=== PATIENT | female | born 1970 | race Caucasian/White ===

== ENCOUNTER 2022-01-03 12:10 | Emergency (ER) | payer OTHER, SELFPAY ==
[2022-01-03 12:11] VITALS: BP 189/112; PULSE 111; RESP 18; TEMP 36; O2SAT 99; BMI 60.7
--- NOTE | 2022-01-03 12:35 | RAD_ITS ---
STUDY: X-RAY CHEST REASON FOR EXAM: Female, 51 years old. Cough and fever . Shortness of breath. TECHNIQUE: PA and lateral views of the chest. COMPARISON: None. FINDINGS: The lungs are clear and expanded. There is no demonstrated pleural abnormality. Normal size heart. Normal mediastinum and justin. Normal visualized pulmonary arteries. Normal visualized aortic arch and descending thoracic aorta. There are diffuse degenerative changes of the visualized thoracic spine. Normal visualized ribs, clavicles, and shoulders. There is no demonstrated abnormality of the visualized soft tissue structures of the upper abdomen. RAD/Chest PA and Lateral IMPRESSION: The lungs are clear. Electronically Signed: Jae Gramajo MD at 13:03 EDT ,
--- NOTE | 2022-01-03 12:36 | EDS_ITS ---
HPI HPI - URI History of Present Illness Chief Complaint: Shortness of Breath Informant: patient Onset/Context/Timing Onset: Days Context: Gradual Onset Timing: Continuous Current Severity: Mild Maximum Severity: Mild Associated Symptoms Associated Symptoms: Positive for Nasal Congestion, Shortness of Breath and Nonproductive cough; Negative for Myalgias, Nausea, Vomiting, Diarrhea, Chest Pain, Hemoptysis and Productive Cough Narrative Narrative: 51-year-old female who was vaccinated against COVID. States she has had mild shortness of breath cough and fever since Monday. Fever as high as 1 02. Nonproductive cough. Denies any vomiting, diarrhea or dysuria. Denies any hemoptysis. No chest pain. No leg pain or swelling. No history of DVT or PE. Prior similar symptoms: Yes Recent Illness/Hospitalization: No ROS ROS ED ROS Narrative Cough, fever shortness of breath. Review of Systems ROS Unobtainable: Denies due to encephalopathy Constitutional Constitutional ED: Reports fever(s) Eyes Eyes: Denies change in vision ENT ENT ED: Denies ear pain Cardiovascular Cardiovascular: Denies chest pain Respiratory/Chest Respiratory/Chest: Reports cough and dyspnea Gastrointestinal Gastrointestinal: Denies abdominal pain, diarrhea, nausea or vomiting Genitourinary Genitourinary ED: Denies dysuria Musculoskeletal Musculoskeletal: Denies myalgias Integumentary Denies rash Neurologic Neurologic: Denies headache(s) Psychiatric Psychiatric: Denies depression Endocrine Endocrinology: Denies polyuria Hematologic/Lymphatic Hematologic/Lymphatic: Denies easy bruising Allergic/Immunologic Allergic/Immunologic ED: Denies urticaria PFSH PFSH Medical History no medical history no medical history Home Medications hydrochlorothiazide 25 mg PO DAILY 08/19/16 [History Last Taken Unknown] prednisone 60 mg PO DAILY #15 tablet 08/19/16 [Rx Last Taken Unknown] azithromycin [Zithromax Z-Justin] See Rx Instructions .ROUTE .COMPLEX 5 Days #6 tab 01/03/22 [Rx Last Taken Unknown] Allergy/AdvReac Type Severity Reaction Status Date / Time magnesium AdvReac Other Verified 01/03/22 12:11 sulfamethoxazole AdvReac Vomiting Verified 01/03/22 12:11 [From Bactrim] trimethoprim [From Bactrim] AdvReac Vomiting Verified 01/03/22 12:11 Surgical History (Updated 01/03/22 @ 12:39 by Whit Mena RN) Hx of section Social History Smoking Status: Never smoker EXAM Physical Exam Narrative Exam Narrative: 51-year-old female no acute distress. Vital signs stable her blood pressure is elevated 189/112. That will be rechecked. Pulse ox 9 9% on room air no signs hypoxia. HEENT exam unremarkable. Neck nontender. Lungs cl ear to auscultation bilaterally. Dry cough. Heart regular rate and rhythm no murmur. Abdomen soft nontender. Moving all 4 extremities. Calves nontender without edema. Neurologically awake alert with no focal motor deficits. Const Vital Signs: 01/03/22 12:11 01/03/22 12:39 Temperature 96.8 F L Temperature Source Temporal Pulse Rate 111 H Respiratory Rate 18 Respiratory Effort Short of Breath Respiratory Depth Normal Respiratory Pattern Normal Blood Pressure 189/112 H Blood Pressure Mean 137 Pulse Ox 99 Oxygen Delivery Method Room Air Positive well nourished, well developed and obese; Negative for cachectic or contractures General Appearance ED: well developed and NAD; Negative for cachectic, contractures, cyanotic, diaphoretic or pallor Nutritional Appearance: obese; Negative for cachectic HEENT Reports moist mucous membranes normocephalic and atraumatic External Ear: external ears normal Throat: posterior oropharynx normal Eyes PERRL and EOMs intact bilaterally General Eye ED: Negative for pale conjunctiva or scleral icterus Neck no lymphadenopathy, supple, no meningeal signs and no JVD General: Negative for anterior neck swelling or lymphadenopathy Resp normal respiratory effort and clear to auscultation bilaterally Effort and Inspection: Negative for retractions Auscultation: Negative for rales, rhonchi or wheezes Cardio S1 normal heart sound, S2 normal heart sound and no murmurs Rate: regular rate Rhythm: regular rhythm GI non-tender, non-distended and no masses Inspection: Negative for abdominal distention Auscultation: normoactive bowel sounds Palpation: soft; Negative for tender or guarding Back/Spine no CVA tenderness and normal ROM General Back: Negative for CVA tenderness Cervical Spine: Negative for cervical spine tenderness Extremity normal to inspection and full ROM General Extremety ED: Negative for cyanosis or tenderness General Extremity: Negative for cyanosis Neuro oriented x3 and CN's II-XII intact bilaterally Sensorium / Orientation: alert, oriented to person, oriented to place, oriented to time and stuporous; Negative for orientation impaired or lethargic Motor Exam: strength 5/5 throughout; Negative for general weakness Psych mental status grossly normal Attitude: No agitated Mood & Affect: Negative for depressed or tearful Skin General Skin Exam: Negative for jaundice or pallor Lesions: no lesions Rashes: no rashes MDM MDM MDM Narrative Medical decision making narrative: 51-year-old that was vaccinated against COVID had negative test over the weekend at home. Complaint URI symptoms. Chest x- ray will be obtained. Repeat exam unchanged doing well at 1:54 PM. Will be discharged home. Radiography Diagnostic Testing: Clinical Impression(s) from Imaging Studies Chest X-Ray 01/03/22 12:35 IMPRESSION: The lungs are clear. Electronically Signed: Jae Gramajo MD at 13:03 EDT Reading Location ID and State: [facility] / [place] , Service support , Chest x-ray 2 views, AP and lateral, interpreted by myself and the radiologist shows no acute abnormality. We agree. No infiltrates. No pneumonia. Discharge Plan Triage Chief Complaint: Shortness of Breath ED Provider: Danny Yuan Dx/Rx/DC Orders Clinical Impression: Acute bronchitis Instructions: Acute Bronchitis Prescriptions: New azithromycin [Zithromax Z-Justin] 250 mg tablet See Rx Instructions .ROUTE .COMPLEX 5 Days Qty: 6 RF: 0 No Action hydrochlorothiazide 25 MG tablet 25 mg PO DAILY RF: 0 prednisone 20 MG tablet 60 mg PO DAILY Qty: 15 RF: 0 Primary Care Provider: Patricia Villatoro Referrals: Patricia Villatoro MD [Primary Care Provider] - 1 Week if not improving Activity Restrictions/Additional Instructions: Plenty of fluids and rest. Tylenol and Motrin for fever. Follow-up if not improving. Return if worse. Only start antibiotic if not improving. Disposition Disposition: Home, Self Care
[2022-01-03 14:08] VITALS: PULSE 84; RESP 18
== END 2022-01-03 14:08 | disposition home or self-care (01) ==
PROVIDERS: Emergency Provider Emergency Medicine; PCP Family Medicine; Visit Provider Emergency Medicine
DX: J20.9 Acute bronchitis, unspecified (principal)
CPT/HCPCS: 71046; 99282

== ENCOUNTER → 2022-10-25 | Outpatient (CLI) | payer OTHER, SELFPAY ==
[2022-10-25 18:24] LABS: Anion Gap 10 (5-15); BUN 10 mg/dL (7-18); BUN/Creat Ratio 16.1 RATIO (10-20); Calcium,Total 9.5 mg/dL (8.5-10.1); Chloride 104 mmol/L (98-107); Cholesterol 258 mg/dL (200); Creatinine, Serum 0.62 mg/dL (0.55-1.02); EST Glomerular Filtration Rate 107 mL/min (>60); Est Glom Filt Rate - Afr Amer 130 mL/min (>60); Glucose 127 mg/dL (74-106); High Density Lipoprotein 42 mg/dL; Potassium 4.2 mmol/L (3.5-5.1); Sodium Level 140 mmol/L (136-145); Triglycerides 311 mg/dL; Very Low Density Lipoprotein 62 mg/dL (5-40)
[2022-10-25 18:53] LABS: Hemoglobin A1c 8.2 % (3.8-5.6)
== END | disposition home or self-care (01) ==
LOC: MFPLAB 15:56
PROVIDERS: PCP Family Medicine; Visit Provider Family Medicine
DX: Z00.00 Encounter for general adult medical examination without abnormal findings (principal); E66.01 Morbid (severe) obesity due to excess calories
CPT/HCPCS: 36415; 80048; 80061; 83036

== ENCOUNTER → 2022-10-27 | Outpatient (CLI) | payer OTHER, SELFPAY ==
--- NOTE | 2022-10-27 07:27 | BI_ITS ---
MAMMOGRAPHY - BILATERAL SCREENING REASON FOR EXAM: Female, 51 years old. Routine annual screening examination. PERTINENT HISTORY: Non-contributory. TECHNIQUE: Digital bilateral breast roly (3D mammographic acquisition) in the CC and MLO projections. 2-D mediolateral oblique (MLO) and craniocaudad (CC) views of both breasts were obtained. CAD: Full Field Digital Mammography with Computer Added Detection was performed. COMPARISON: Comparison is made with prior abdomen examination done 08/05/2015. FINDINGS: Breast Composition: The breasts are almost entirely fatty. There are no dominant masses or suspicious calcifications. No other significant abnormalities are identified. There has been no significant change since the prior study. BI/SCRN MAMM (CAD)W/ROLY BILAT IMPRESSION: Stable bilateral screening mammogram. Yearly follow-up mammogram recommended. (A) ASSESSMENT CATEGORY: BIRADS Category 1: Negative. A letter regarding these results will be sent to the patient by the facility within 30 days. Approximately 10% of breast cancers are not detected by mammography. A normal mammogram should not delay biopsy of a clinically suspicious abnormality. [id number] Electronically Signed: Jae Gramajo MD at 15:19 EST ,
== END | disposition home or self-care (01) ==
PROVIDERS: PCP Family Medicine; Visit Provider Family Medicine
DX: Z12.31 Encounter for screening mammogram for malignant neoplasm of breast (principal)
CPT/HCPCS: 77063; 77067

== ENCOUNTER → 2023-01-05 | Outpatient (CLI) | payer OTHER, SELFPAY ==
[2023-01-12 14:21] LABS: HPV APTIMA, High Risk Negative (Negative)
== END | disposition home or self-care (01) ==
PROVIDERS: PCP Family Medicine; Visit Provider Registered Nurse
DX: Z01.419 Encounter for gynecological examination (general) (routine) without abnormal findings (principal)
CPT/HCPCS: 87624; 88175; G0145

== ENCOUNTER → 2025-06-03 | Outpatient (CLI) | payer OTHER, SELFPAY ==
--- OUTSIDE RECORDS SUMMARY | 2025-06-03 09:17 | XMS RPT_ITS | CCD ---
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 Patricia Villatoro Primary Care Provider [phone] Dr. Patricia Villatoro Referring Provider MARION Schroeder Attending Provider [phone] Ivana Schroeder Attending Unavailable Patricia Villatoro Primary Care Unavailable Patricia Villatoro Primary Care Unavailable Patricia Villatoro Attending Unavailable Patricia Villatoro Attending Unavailable Irving, Patricia Patel Primary Care Unavailable Irving, Patricia Patel Primary Care Unavailable Ivana Schroeder Attending Unavailable Patricia Villatoro Referring Unavailable Hal Ang Attending Unavailable Irving, Patricia Patel Primary Care Unavailable Irving, Patricia Patel Referring Unavailable Allergies Allergy Classification Reported Allergen(s) Allergy Type Date of Onset Reaction(s) Facility (4 sources) Magnesium Drug Allergy 2 Other [facility] (4 sources) Sulfamethoxazole Drug Allergy 2 [facility] (4 sources) Trimethoprim Drug Allergy 2 [facility] (1 source) Magnesium Drug Allergy 3 [facility] Repository (1 source) Sulfamethoxazole Drug Allergy 3 [facility] Repository (1 source) Trimethoprim Drug Allergy 3 [facility] Repository Medications Current Medications Medication Drug Class(es) Dates Sig (Normalized) Sig (Original) [place] (Nk) (1 source) Start: 01-05-2023 [place] (Nk) A ctive January 05, 2023 12:00am Completed/Discontinued Medications Medication Drug Class(es) Dates Sig (Normalized) Sig (Original) azithromycin 250 mg oral tablet (4 sources) Macrolide Antimicrobial Start: 01-04-20 22 End: 03-30-20 23 Azithromycin (Zithromax Z-Justin) 250 mg tablet Discontinued 0 PO .COMPLEX 6 5 January 03, 2022 12:00am January 05, 2023 2:53pm For 250 mg dose pack: take 500 mg today (day 1), then 250 mg for 4 days (days 2-5) hydroCHLOROthiazide 25 mg oral tablet (4 sources) Thiazide Diuretic Start: 08-19-20 End: 01-06-20 take 25 mg by mouth once daily Hydrochlorothiazide Discontinued 25 MG PO DAILY August 19, 2016 1:00am January 05, 2023 2:53pm predniSONE 20 mg oral tablet (4 sources) Start: 08-19-20 End: 01-06-20 take 60 mg by mouth once daily Prednisone Discontinued 60 MG PO DAILY August 19, 2016 1:00am January 05, 2023 2:53pm Problems Active Problems Problem Classification Problem Date Documented Da te Episodic/Chronic Acute bronchitis (4 sources) Acute bronchitis; Translations: [Acute bronchitis, unspecified] 01-11-2022 Episodic Past or Other Problems Problem Classification Problem Date Documented Da te Episodic/Chronic Other screening for suspected conditions (not mental disorders or infectious disease) (1 source) Encounter for screening mammogram for malignant neoplasm of breast; Translations: [Encounter for screening mammogram for malignant neoplasm of breast] Onset: 11-07-2022 Episodic Results Test Name Value Interpretation Reference Range Facility Orthopedic Visit Reporton Orthopedic Visit Report [facility] [address] [place] [address] OFFICE VISIT Date of Service: 09/19/23 MR#: [id number] Acct: [id number] Name: CLAUDIO RAO FLOR Rep #: [id number] : 1970 Provider: Dr. Hal gamez MD Age/Sex: 52/F Location: [facility] Status: Signed Intake Vital Signs 01/05/23 14:52 09/19/23 14:16 Height 5 ft 2 in 5 ft 2 in Weight: 334 lb 4 oz 337 lb 2 oz BMI 61.1 61.7 BP 146/92 H Intake Visit Reasons: BL WRIST Accompanied by: Self Is patient in pain?: Yes Pain scale (1-10): 1 Allergies magnesium Adverse Reaction (Verified 01/05/23 14:50) Other sulfamethoxazole [From Bactrim] Adverse Reaction (Verified 01/05/23 14:50) Vomiting trimethoprim [From Bactrim] Adverse Reaction (Verified 01/05/23 14:50) Vomiting Medications NK 01/05/23 [History Confirmed 09/19/23] PFSH Medical History (Updated 09/19/23 @ 14:43 by Hal Ang MD) Bilateral carpal tunnel syndrome Diabetes Hypertension Left lateral epicondylitis Surgical History (Updated 09/19/23 @ 14:18 by Angela Juarez) Hx of section Family History (Updated 01/05/23 @ 14:55 by Samara Morgan) Grandfather Cancer Father Heart disease Hypertension Mother Diabetes Social History (Updated 01/05/23 @ 14:57 by Samara Morgan) household members: significant other and children housing: house number of children: 1 current occupational status: employed current occupation: 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 Hal Ang MD 09/19/23 1126. Part of today???s visit was documented by [ ], acting as scribe. CLAUDIO RAO is a 52 year old F here today for referral from [facility] re bilateral carpal tunnel syndrome. LHD, ambidextrous. hands going numb, write with left hand. getting worse, started a year ago, every day becoming more frequent. clumsy. usually thumb index middle. 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 [place] - stretching, shaking it out, some bracing at night - couple months. some elbow pain on the left side. lateral side. no NCS. Ortho Exam General General: Yes no acute distress Neurologic: Yes alert and Yes oriented x3 Psychologic: Yes reasonable and appropriate Right Wrist/Hand Skin/Wound: Yes CDI, No Swelling, No Ecchymosis, Yes nail intact and Yes capillary refill normal Right Wrist: Yes ROM-Extension 0-60, ROM-Flexion 0-80, ROM-Pronation 0-80, ROM-Supination 0-90, Durken's Test, Tinel's and Phalen's; No Thenar Atrophy or Hypothenar Atrophy Motor: EPL: 5, FDP-2: 5, 1st Dorsal Interosseous: 5 and APB: 5 Sensation: Radial: I, Ulnar: I and Median: D Left Wrist/Hand Skin/Wound: Yes CDI, No Swelling, No Ecchymosis, Yes nail intact, Yes capillary refill normal and No erythema Left Wrist: Yes ROM-Extension 0-60, Yes ROM-Flexion 0-80, Yes ROM-Pronation 0-80, Yes ROM-Supination 0-90, Yes Durken's Test, Yes Tinel's and Yes Phalen's; No Thenar Atrophy and No Hypothenar Atrophy Motor: EPL: 5, FDP-2: 5, 1st Dorsal Interosseous: 5 and APB: 5 Sensation: Radial: I, Ulnar: I and Median: D Left Elbow Skin/Wound: Yes CDI, No eccymosis, No erythema and No Swelling Test: No Valgus Stress Test, No Varus Stress Test, No TTP Medial Epicondyle, Yes TTP Lateral Epicondyle, Yes Pain w/ resist wrist ext, No Pain w/ resist wrist flex, Yes Pain w/ resist 3rd dig ext, No Thenar Atrophy, No Ulnar Nerve Subluxation and No Tinel's ROM: Yes Flexion 0-140 Motor: Elbow Extension: 5 and Elbow Flexion: 5 Coding Level of Care Code Off vis,new,level 3 Diagnoses Bilateral carpal tunnel syndrome G56.03 Left lateral epicondylitis M77.12 Assessment and Plan Assessment and Plan (1) Bilateral carpal tunnel syndrome: Status: Acute Plan: CLAUDIO RAO is a 52 year old F here today for referral from [facility] re bilateral carpal tunnel syndrome. Patient has signs and symptoms of bilateral carpal tunnel syndrome. Discussed the diagnosis prognosis different treatment options and counseled the patient on these. This can become worse or more permanent with time. Patient can try rest ice anti-inflammatories they are trying night splinting. Other options would be cortisone injections as well as open or endoscopic surgery. The patient is interested in likely going ahead with surgery therefore I will go ahead and order nerve conduction studies both to assess the severity confirm the diagnosis and rule out other things that could be causing this type (more content not included)... Normal [facility] PAP IG HPV APTIMA 16/18,45on 01-12-2023 ADEQ Comment Normal . 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 of containers..01 ThinPrep Vial Result Comment: Sati sfactory for evaluation. Endocervical and/or squamous metaplastic cells (endocervical component) are present. Performed By: #### L 7400.0280 #### [facility] [address] [place], [address] COMMENT TNP Normal . [facility] Comment on above: Order Comment: Clini torrey Info: ANNUAL - Non Collection Vial: Thin Prep Vial DIRECTOR TELEVISION NEWS Source: CERVICAL Date LMP/Menopause: LMP Collection Techniques: BRUSH/SPATULA Specimen Comment: [id number] Specimen Comment: Source.............Cervix Specimen Comment: No. of containers..01 ThinPrep Vial Result Comment: The Thin Prep(R) Barge Master was unable to read this specimen. Therefore a manual review was performed. Performed By: #### L 7400.0280 #### [facility] [address] [place], [place], [id number] DIAG Comment Normal . [facility] Comment on above: Order Comment: Clini torrey Info: ANNUAL - Non Collection Vial: Thin Prep Vial DIRECTOR TELEVISION NEWS Source: CERVICAL Date LMP/Menopause: LMP Collection Techniques: BRUSH/SPATULA Specimen Comment: [id number] Specimen Comment: Source.............Cervix Specimen Comment: No. of containers..01 ThinPrep Vial Result Comment: NEGA TIVE FOR INTRAEPITHELIAL LESION OR MALIGNANCY. Performed By: #### L 7400.0280 #### [facility] [address] [place], [place], [id number] HPV APTIMA, HR Negative Normal Negative [facility] Comment on above: Order Comment: Clini torrey Info: ANNUAL - Non Collection Vial: Thin Prep Vial DIRECTOR TELEVISION NEWS Source: CERVICAL Date LMP/Menopause: LMP Collection Techniques: BRUSH/SPATULA Specimen Comment: [id number] Specimen Comment: Source.............Cervix Specimen Comment: No. of containers..01 ThinPrep Vial Result Comment: This nucleic acid amplification test detects fourteen high- risk HPV types (16,18,31,33,35,39,45,51,52,56,58,59,66,68) without differentiation. Performed By: #### L 7400.0280 #### [facility] [address] [place], [address] HPV Ramona Rfx Comment Normal . [facility] Comment on above: Order Comment: Clini torrey Info: ANNUAL - Non Collection Vial: Thin Prep Vial DIRECTOR TELEVISION NEWS Source: CERVICAL Date LMP/Menopause: LMP Collection Techniques: BRUSH/SPATULA Specimen Comment: [id number] Specimen Comment: Source.............Cervix Specimen Comment: No. of containers..01 ThinPrep Vial Result Comment: Crit eria not met, HPV Genotype not performed. Performed at: - [facility] [id number] Steel Rule Inspector: Josey Ortega MD, Phone: [phone] Performed at: = - [facility] [address] [id number] Steel Rule Inspector: Josey Ortega MD, Phone: [phone] Performed By: #### L 7400.0280 #### [facility] [address] [place], [place], [id number] PAPSMR Comment Normal . [facility] Comment on above: Order Comment: Clini torrey Info: ANNUAL - Non Collection Vial: Thin Prep Vial DIRECTOR TELEVISION NEWS Source: CERVICAL Date LMP/Menopause: LMP Collection Techniques: BRUSH/SPATULA Specimen Comment: [id number] Specimen Comment: Source.............Cervix Specimen Comment: No. of containers..01 ThinPrep Vial Result Comment: The Pap smear is a screening test designed to aid in the detection of premalignant and malignant conditions of the uterine cervix. It is not a diagnostic procedure and should not be used as the sole means of detecting cervical cancer. Both false-positive and false-negative reports do occur. Performed By: #### L 7400.0280 #### [facility] [address] [place], [place], [id number] PERFORM Comment Normal . [facility] Comment on above: Order Comment: Clini torrey Info: ANNUAL - Non Collection Vial: Thin Prep Vial DIRECTOR TELEVISION NEWS Source: CERVICAL Date LMP/Menopause: LMP Collection Techniques: BRUSH/SPATULA Specimen Comment: [id number] Specimen Comment: Source.............Cervix Specimen Comment: No. of containers..01 ThinPrep Vial Result Comment: John Schneider, Vp Director Of Finance (ASCP) Performed By: #### L 7400.0280 #### [facility] [address] [place], [place], [id number] COMM . Normal . [facility] Comment on above: Order Comment: Clini torrey Info: ANNUAL - Non Collection Vial: Thin Prep Vial DIRECTOR TELEVISION NEWS Source: CERVICAL Date LMP/Menopause: LMP Collection Techniques: BRUSH/SPATULA Specimen Comment: [id number] Specimen Comment: Source.............Cervix Specimen Comment: No. of containers..01 ThinPrep Vial Performed By: #### L 7400.0280 #### [facility] [address] [place], [place], [id number] Cervical or vagninal specime n microscopic examination by cytology stain (reported asOrdered By: Ivana Schroeder on 01-05-2023 Cytology report Cyto stain Doc (Cvx/Vag) Comment . [facility] Comment on above: The Pap smear is a s creening test designed to aid in thedetection of premalignant and malignant conditions of theuterine cervix. It is not a diagnostic procedure andshould not be used as the sole means of detecting cervicalcancer. Both false-positive and false-negative reports dooccur. Detection in cervical specim en of any of human papilloma virus (HPV) 16, 18, 31, 33,Ordered By: Ivana Schroeder on 01-05-2023 HPV 16+18+31+33+35+39+45+51 +52+56+58+59+66+68 DNA Probe+sig amp Ql (Cvx) Negative Negative [facility] Comment on above: This nucleic acid am plification test detects fourteen high-risk HPV types (16,18,31,33,35,39,45,51,52,56,58,59,66,68)without differentiation. Laboratory - CytologyOrdered By: Ivana Schroeder on 01-05-2023 Iron Carrier Cyto stain Nom (Cvx/Vag) [ID] Comment . [facility] Comment on above: Mechelle Schneider, Cyto technologist (ASCP) Laboratory - Miscellaneous t estsOrdered By: Ivana Schroeder on 01-05-2023 Service comment (Unsp spec) [Interp] TNP [facility] Comment on above: Test not performedTh e Thin Prep(R) Barge Master was unable to read this specimen.Therefore a manual review was performed. Service comment (Unsp spec) [Interp] . . [facility] Liquid-based cerv Pap + CT/G C by SUZANNE w reflex to high-risk HPV for ASCUSOrdered By: Ivana Schroeder on 01-05-2023 Cytology report Cyto stain.thin prep Doc (Cvx/Vag) Comment . [facility] Comment on above: Criteria not met, HP V Genotype not performed.Performed at: - [facility] [id number] Director: Josey Ortega MD, Phone: [phone] at: =[facility] [id number] Director: Josey Ortega MD, Phone: [phone] No Panel InformationOrdered By: Ivana Schroeder on 01-05-2023 Pathology report final diagnosis Narrative Comment . [facility] Comment on above: NEGATIVE FOR INTRAEP ITHELIAL LESION OR MALIGNANCY. Neck Fitter Office Visit Reporton 01-05-2023 Neck Fitter Office Visit Report [facility] 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 Patient states she is nervous and has not been to an OBGYN office since she had her daughter in 2007. Patient states she sees her PCP routinely and has not had any bp problems. [facility] Surgical History (Updated 01/03/22 @ 12:39 by Whit Mena RN) Hx of section Family History (Updated 01/05/23 @ 14:55 by Samara Morgan) Grandfather Cancer Father Heart disease Hypertension Mother Diabetes Social History (Updated 01/05/23 @ 14:57 by Samara Morgan) household members: significant other and children housing: house number of children: 1 current occupational status: employed current occupation: 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 Date Name GA/Weeks Outcome Route Bth Weight Infant Gen Labor Lgth Anesthesia Del Locatn Provider FOB 03/04/08 Daila live - full term Female spinal [facility] Ru ssel HPI Encounter for routine gynecological examination Details: CLAUDIO RAO is a 52 year old who presents for annual exam. sexually active, menses month, occ every other month. not currently using any contraception. recently diagnosed with DM2, desires non- pharmacological treatment, discussing options with PCP. not on any medications currently. Last PAP: greater than 5 years ago History of abnormal PAP: Last mammogram: 10/27/2022, birads 1 History of abnormal mammogram: [] Colon cancer screening: Other preventative health care screenings: pcp Female Reproductive History Last Menstrual Period: 12/22/22 Questions: metorrhagia: No, sexually active: Yes, dyspareunia: No and PCB: No Menopausal Symptoms: No hot flashes, No weight change, No mood changes, No difficulty concentrating, No sleep problems and No change in libido ROS Const ROS Unobtainable: All systems reviewed are unremarkable except as noted in H Constitutional: Reports system reviewed and no additional complaints, except as documented Eyes Eyes: Reports system reviewed and no additional complaints, except as documented ENT ENT: Reports system reviewed and no additional complaints, except as documented Cardio Card: Reports system reviewed and no additional complaints, except as documented Resp Resp: Reports system reviewed and no additional complaints, except as documented GI GI: Reports system reviewed and no additional complaints, except as documented : Reports system reviewed and no additional complaints, except as documented; Denies hot flashes Skin Skin/Breast: Reports system reviewed and no additional complaints, except as documented Neuro Neuro: Reports system reviewed and no additional complaints, except as documented Psych Psych: Reports system reviewed and no additional complaints, except as documented; Denies change in libido or difficulty concentrating Endo Endo: Reports system reviewed and no additional complaints, except as documented Ric/Lymph Hematologic/Lymphatic : Reports system reviewed and no additional complaints, except as documented Aller/Immun Allergic/Immunologic: Reports system reviewed and no additional complaints, except as documented Exam Const General: cooperative, healthy appearing, comfortable, no acute distress, well developed and well groomed Neck Neck: normal visual inspection, full ROM, no lymphadenopathy and sup (more content not included)... Normal [facility] SCRN MAMM (CAD)W/ROLY BILATo n 10-27-2022 SCRN MAMM (CAD)W/ROLY BILAT [facility] [address] [place] [address] SCRN MAMM (CAD)W/ROLY BILAT MR#: [id number] Acct: [id number] Name: CLAUDIO RAO FLOR Rep #: [id number] : 1970 F 51 From: Jae galvez MD PCP: Dr. Patricia Villatoro MD Status: [facility] Study: SCRN MAMM (CAD)W/ROLY BILAT Date of Exam: 10/09 07/01 Exam# [id number] Ordering Dr: Patricia Villatoro MD MAMMOGRAPHY - BILATERAL SCREENING REASON FOR EXAM: Female, 51 years old. Routine annual screening examination. PERTINENT HISTORY: Non-contributory. TECHNIQUE: Digital bilateral breast roly (3D mammographic acquisition) in the CC and MLO projections. 2-D mediolateral oblique (MLO) and craniocaudad (CC) views of both breasts were obtained. CAD: Full Field Digital Mammography with Computer Added Detection was performed. COMPARISON: Comparison is made with prior abdomen examination done 08/05/2015. FINDINGS: Breast Composition: The breasts are almost entirely fatty. There are no dominant masses or suspicious calcifications. No other significant abnormalities are identified. There has been no significant change since the prior study. BI/SCRN MAMM (CAD)W/ROLY BILAT IMPRESSION: Stable bilateral screening mammogram. Yearly follow-up mammogram recommended. (A) ASSESSMENT CATEGORY: BIRADS Category 1: Negative. A letter regarding these results will be sent to the patient by the facility within 30 days. Approximately 10% of breast cancers are not detected by mammography. A normal mammogram should not delay biopsy of a clinically suspicious abnormality. [id number] Electronically Signed: Jae Gramajo MD at 15:19 EST , CC: Dr. Patricia Villatoro MD Bear Keeper: Signed Normal [facility] Basic Metabolic Profile (BMP )on 10-25-2022 BUN/CRE 16.1 RATIO Normal 10-20 [facility] Comment on above: Performed By: #### L 500.4100, L501.9985, L500.2500 #### [facility] [address] [place], [address] CA,Total 9.5 mg/dL Normal 8.5-10.1 [facility] Comment on above: Performed By: #### L 500.4100, L501.9985, L500.2500 #### [facility] [address] [place], [address] Chloride [Moles/Vol] 104 mmol/L Normal 98-107 [facility] Comment on above: Performed By: #### L 500.4100, L501.9985, L500.2500 #### [facility] [address] [place], [address] CO2 [Moles/Vol] 26.0 mmol/L Normal 21.0-32.0 [facility] Comment on above: Performed By: #### L 500.4100, L501.9985, L500.2500 #### [facility] [address] [place], [address] Creatinine [Mass/Vol] 0.62 mg/dL Normal 0.55-1.02 [facility] Comment on above: Result Comment: The validity of the calculated GFR GFRAA in patients over 70 years has not been determined. Clinical correlation is essential. Performed By: #### L 500.4100, L501.9985, L500.2500 #### [facility] [address] [place], [address] EST GFR - AA 130 mL/min Normal >60 [facility] Comment on above: Result Comment: Afri can Bulgarian GFR Calc Performed By: #### L 500.4100, L501.9985, L500.2500 #### [facility] [address] [place], [address] GAP 10 Normal 5-15 [facility] Comment on above: Performed By: #### L 500.4100, L501.9985, L500.2500 #### [facility] [address] [place], [address] GFR/1.73 sq M.predicted among non-blacks MDRD (S/P/Bld) [Vol rate/Area] 107 mL/min/{1.73_m2} Normal >60 [facility] Comment on above: Result Comment: Non- GFR Calc Performed By: #### L 500.4100, L501.9985, L500.2500 #### [facility] [address] [place], [address] Glucose [Mass/Vol] 127 mg/dL High 74-106 [facility] Comment on above: Result Comment: Fast ing Glucose result greater than or equal to 126 mg/dL suggests DIABETES MELLITUS per A.D.A. criteria. Performed By: #### L 500.4100, L501.9985, L500.2500 #### [facility] [address] [place], [address] Potassium [Moles/Vol] 4.2 mmol/L Normal 3.5-5.1 [facility] Comment on above: Performed By: #### L 500.4100, L501.9985, L500.2500 #### [facility] [facility] [address] [place], [address] Sodium [Moles/Vol] 140 mmol/L Normal 136-145 [facility] Comment on above: Performed By: #### L 500.4100, L501.9985, L500.2500 #### [facility] [address] [place], [address] Urea nitrogen [Mass/Vol] 10 mg/dL Normal 7-18 [facility] Comment on above: Performed By: #### L 500.4100, L501.9985, L500.2500 #### [facility] [address] [place], [address] Basophil percentageOrdered B y: Dr. Villatoro on 10-25-2022 Chloride [Moles/Vol] 104 mmol/L 98-107 [facility] Cholesterol [Mass/Vol] 258 mg/dL <200 [facility] Comment on above: <200 mg/dL Desirable 200-240 mg/dL Borderline >240 mg/dL High Risk Glucose [Mass/Vol] 127 mg/dL 74-106 [facility] Comment on above: Fasting Glucose resu lt greater than or equal to 126 mg/dL suggests DIABETES MELLITUS per A.D.A. criteria. Potassium [Moles/Vol] 4.2 mmol/L 3.5-5.1 [facility] Sodium [Moles/Vol] 140 mmol/L 136-145 [facility] Triglyceride [Mass/Vol] 311 mg/dL <199 [facility] Comment on above: The drugs N-Acetylcy steine and Metamizole may falsely depress this assay.Serum Triglycerides Reference Interval Normal <150 mg/dL Borderline high 150 - 199 mg/dL High 200 - 499 mg/dL Very High > or = 500 mg/dL Hemoglobin A1con 10-25-2022 HbA1c (Bld) [Mass fraction] 8.2 % High 3.8-5.6 [facility] Comment on above: Result Comment: Norm al < 5.7 % Prediabetic 5.7 - 6.4 % Diabetic >or= 6.5 % Please note range changes. Performed By: #### L 500.4100, L501.9985, L500.2500 #### [facility] [address] [place], [address] Laboratory - Chemistry and C hemistry - challengeOrdered By: Dr. Villatoro on 10-25-2022 CO2 [Moles/Vol] 26.0 mmol/L 21.0-32.0 [facility] Urea nitrogen/Creatinine [Mass ratio] 16.1 mg/mg 10- [facility] Lipid Profileon 10-25-2022 Cholesterol [Mass/Vol] 258 mg/dL High 200 [facility] Comment on above: Result Comment: <200 mg/dL Desirable 200-240 mg/dL Borderline >240 mg/dL High Risk Performed By: #### L 500.4100, L501.9985, L500.2500 #### [facility] [address] [place], [address] Cholesterol in HDL [Mass/Vol] 42 mg/dL Normal [facility] Comment on above: Result Comment: The drugs N-Acetylcysteine and Metamizole may falsely depress this assay. Reference Range HDL <40 mg/dL Low HDL Cholesterol HDL >or= 60 mg/dL High HDL Cholesterol Performed By: #### L 500.4100, L501.9985, L500.2500 #### [facility] [address] [place], [address] Cholesterol in LDL [Mass/Vol] 154 mg/dL High 0-130 [facility] Comment on above: Performed By: #### L 500.4100, L501.9985, L500.2500 #### [facility] [address] [place], [address] Cholesterol in VLDL [Mass/Vol] 62 mg/dL High 5-40 [facility] Comment on above: Performed By: #### L 500.4100, L501.9985, L500.2500 #### [facility] [address] [facility] [place], [address] Triglyceride [Mass/Vol] 311 mg/dL High [facility] Comment on above: Result Comment: The drugs N-Acetylcysteine and Metamizole may falsely depress this assay. Serum Triglycerides Reference Interval Normal <150 mg/dL Borderline high 150 - 199 mg/dL High 200 - 499 mg/dL Very High > or = 500 mg/dL Performed By: #### L 500.4100, L501.9985, L500.2500 #### [facility] [address] [facility] [place], [place], [id number] No Panel InformationOrdered By: Dr. Villatoro on 10-25-2022 Estimated GFR (MDRD) Amer 130 mL/min >60 [facility] Comment on above: GFR Calc Estimated GFR (MDRD) Non-Af Amer 107 mL/min >60 [facility] Comment on above: Non- GFR Calc Serum or plasma calcium amauri urement (mass/volume)Ordered By: Dr. Villatoro on 10-25-2022 Calcium [Mass/Vol] 9.5 mg/dL 8.5-10.1 [facility] Serum or plasma cholesterol in HDL measurement (mass/volume)Ordered By: Dr. Villatoro on 10-25-2022 Cholesterol in HDL [Mass/Vol] 42 mg/dL >40 [facility] Comment on above: The drugs N-Acetylcy steine and Metamizole may falsely depress this assay. Reference Range HDL <40 mg/dL Low HDL Cholesterol HDL >or= 60 mg/dL High HDL Cholesterol Serum or plasma cholesterol in VLDL measurement (mass/volume)Ordered By: Dr. Villatoro on 10-25-2022 Cholesterol in VLDL [Mass/Vol] 62 mg/dL 5-40 [facility] Serum or plasma creatinine m easurement (mass/volume)Ordered By: Dr. Villatoro on 10-25-2022 Creatinine [Mass/Vol] 0.62 mg/dL 0.55-1.02 [facility] Comment on above: The validity of the calculated GFR & GFRAA in patients over 70 years has not been determined. Clinical correlation is essential. Serum or plasma low density lipoprotein (LDL) cholesterol measurement (mass/volume)Ordered By: Dr. Villatoro on 10-25-2022 Cholesterol in LDL [Mass/Vol] 154 mg/dL 0-130 [facility] Serum or plasma urea nitroge n measurement (mass/volume)Ordered By: Dr. Villatoro on 10-25-2022 Urea nitrogen [Mass/Vol] 10 mg/dL 7-18 [facility] Thin prep Papanicolaou smear with manual screeningOrdered By: Dr. Villatoro on 10-25-2022 Thin prep Papanicolaou smear with manual screening 10 5-15 [facility] Whole blood hemoglobin A1c/t otal hemoglobin ratio (mass fraction)Ordered By: Dr. Villatoro on 10-25-2022 HbA1c (Bld) [Mass fraction] 8.2 % 3.8-5.6 [facility] Comment on above: Normal < 5.7 % Predi abetic 5.7 - 6.4 % Diabetic >or= 6.5 % Please note range changes. Vital Signs Date Time Vital Sign Value Performing Clinician Faci lity 01-05-2023 14:52-0400 Body height 157.[address] Patricia Villatoro Work Phone: [facility] 01-05-2023 14:52-0400 Body mass index (BMI) [Ratio] 61.1 kg/m2 Dr. Patricia Villatoro Work Phone: [facility] 01-05-2023 14:52-0400 Body weight 151.[address] Patricia Villatoro Work Phone: [facility] 01-05-2023 14:52-0400 Diastolic blood pressure 92 mm[Hg] Dr. Ptaricia Villatoro Work Phone: [facility] 01-05-2023 14:52-0400 Systolic blood pressure 146 mm[Hg] Dr. Patricia Villatoro Work Phone: [facility] 01-03-2022 14:08-0400 Heart rate 84 /min [facility] Work Phone: 01-03-2022 14:08-0400 Respiratory rate 18 /min [facility] Work Phone: 01-03-2022 12:11-0400 Body height 157.48 cm [facility] Work Phone: 01-03-2022 12:11-0400 Body mass index (BMI) [Ratio] 60.7 kg/m2 [facility] Work Phone: 01-03-2022 12:11-0400 Body temperature 96.8 [degF] [facility] Work Phone: 01-03-2022 [id number] Body weight 150.8 kg [facility] Work Phone: 01-03-2022 12:11-0400 Diastolic blood pressure 112 mm[Hg] [facility] Work Phone: 01-03-2022 12:11-0400 SaO2% (BldA) [Mass fraction] 99 % [facility] Work Phone: 01-03-2022 12:11-0400 Systolic blood pressure 189 mm[Hg] [facility] Work Phone: Encounters Encounter Date Encounter Type Care Provider Facility Start: 09-19-2023 End: 09-19-2023 [facility] Start: 01-17-2023 Encounter for gynecological examination (general) (routine) without abnormal findings Ivana Schroeder [facility] Start: 01-05-2023 End: 01-05-[address] Patricia Villatoro Work Phone: [facility] Spec[facility] Start: 01-05-2023 End: 01-05-2023 ambulatory Patricia Villatoro Facility:[facility] Start: 01-05-2023 End: 01-05-[address] Patricia Villatoro Work Phone: [facility] Start: 01-05-2023 End: 01-05-[address] Patricia Villatoro Work Phone: [facility] Work Phone: Start: 11-04-2022 Encounter for genera l adult medical examination without abnormal findings Patricia Patel [facility] Start: 10-27-2022 End: 10-27-2022 ambulatory Patricia Patel [facility] Work Phone: Start: 10-27-2022 End: 10-27-2022 Patient encounter procedure [facility] Start: 10-25-2022 End: 10-25-2022 Patient encounter procedure [facility] [place] Start: 10-25-2022 End: 10-25-2022 ambulatory Patricia Patel [facility] Work Phone: Start: 01-03-2022 End: 01-03-2022 Emergency department patient visit [facility] Procedures Date Procedure Procedure Detail Performing Clinician Start: 10-27-2022 Screening mammography Start: 01-03-2022 Plain chest X-ray Plan of Treatment Date Care Activity Detail Author Patient Education Acute Bronchitis [facility] Work Phone: Patient referral [facility] Work Phone: Payers Date Payer Category Payer Self-pay [id number] 2022 Unknown [id number] Private Health Insurance [facility] [id number] Unknown ANTHEM [id number] [id number] Unknown [id number] [id number] Unknown [id number] [id number] [id number] Unknown [id number] [id number] [id number] Unknown [id number] [id number] [id number] Social History Date Type Detail Facility Start: 01-03-2022 End: 01-05-2023 Tobacco smoking status NHIS Unknown if ever smoked [facility] Start: 1970 Sex Assigned At Female [facility] Clinical Note 01-05-2023 Note Date & Type Note Facility 01-05-2023 Note [facility] Pap Smear Specimen Adequacy January 05, 2023 11:59pm Comment . Satisfactory for evaluation. Endocervical and/or squamous metaplasticcells (endocervical component) are present. Comment on above: Satisfactory for benitez luation. Endocervical and/or squamous metaplasticcells (endocervical component) are present. Evaluation note Note Date & Type Note Facility Evaluation note No assessment information availa ble [facility] Work Phone: Evaluation note Note Date & Type Note Facility Evaluation note Diagnosis Onset Date Encounter for routine gyneco logical examination noneactive [facility] Work Phone: Hospital Discharge instructions Note Date & Type Note Facility Hospital Discharge instructions Additional Instructions Plenty of fluids and rest. Tylenol and Motrin for fever. Follow-up if not improving. Return if worse. Only start antibiotic if not improving. [facility] Work Phone: Chief Complaint and Reason for Visit Chief Complaint SOB Chief Complaint SCREENING Chief Complaint SCREENING Annual ([employer]) Reason for Visit Encounter for routin e gynecological examination Advance Directives No Advanced Directives Records Found Advance Directive Response Recorded Date/ Time Living Will No January 03, 2022 12:39pm Power of Baggage Screener No January 03 12:39pm Advance Directive Response Recorded Date/ Time Living Will No January 03, 2022 11:39am Power of Baggage Screener No January 03 11:39am Family History No Family History Records Found Relationship Condition Age at Onset Recorded Date/T dennis grandfather Malignant neoplasm Unknown father Cardiac disease Unknown Hypertension Unknown mother Diabetes mellitus Unknown Summary Purpose Additional Source Comments Goals (unrecognized section and content) Goals may be documented in a n alternate sectionGoals may be documented in an alternate sectionGoals may be documented in an alternate sectionGoals may be documented in an alternate section Care Teams (unrecognized sec tion and content) Team Status: Active Member Role Status Dates Dr. Patricia Villatoro MD Family Provider Active Dr. Patricia Villatoro MD Primary Care Provider Active Team Status: Active Member Role Status Dates Dr. Patricia Villatoro MD Primary Care Provider, Attendin g Provider Active Team Status: Inactive Member Role Status Dates Dr. Patricia Villatoro MD Primary Care Provider, Attendin g Provider Active Team Status: Inactive Member Role Status Dates Dr. Patricia Villatoro MD Primary Care Provider, Referrin g Provider Active Ivana Schroeder CNM Attending Provider Active Team Status: Inactive Member Role Status Dates Dr. Patricia Villatoro MD Primary Care Provider Active Ivana Schroeder CNM Attending Provider Active INFORMATION SOURCE (unrecogn ized section and content) DATE CREATED AUTHOR 09/21/2023 [facility] FOR RECORDS PERTAINING TO PATIENTS WHO ARE OR HAVE BEEN ENROLLED IN A CHEMICAL DEPENDENCY/SUBSTANCEABUSE PROGRAM, SOME INFORMATION MAY BE OMITTED. This clinical summary was aggregated from multiple sources. Caution should be exercised in using it in the provision of clinical care. This summary normalizes information from multiple sources, and as a consequence, information in this document may materially change the coding, format and clinical context of patient data. In addition, data may be omitted in some cases. CLINICAL DECISIONS SHOULD BE BASED ON THE PRIMARY CLINICAL RECORDS. [facility] [employer] provides no warranty or guarantee of the accuracy or completeness of information in this document.
--- NOTE | 2025-06-03 10:01 | NEURO ---
NCS and/or EMG Patient Report Ordering Doctor: Evie Shah DATE OF SERVICE: 06/03/25 Clinical Summary: 54 year old female patient with symptoms of numbness in both hands. Nerve Conduction Studies Summary: Nerve conduction studies were performed in the bilateral upper extremities. The median-D2 SNAP distal latencies were prolonged bilaterally with reduced amplitude on the right side. The ulnar-D5 SNAP distal latency was prolonged bilaterally with reduced amplitude on the right. The right median-APB CMAP distal latency was prolonged with reduced amplitude. There was ulnar motor conduction velocity slowing across both elbows. Needle Examination Summary: Needle examination of select muscles of the bilateral upper extremities was performed. There was a higher proportion of motor unit action potentials with reduced recruitment, increased amplitude, increased duration, and polyphasia in the left first dorsal interosseous, right flexor carpi ulnaris, and right abductor pollicis brevis muscles. Impression: This is an abnormal study. 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 Multi Select Codes Neurology Neurology Interp Codes: 68995-10 Musc test done w/n test comp (interp) (2) and 58995-20 Nrv cndj test 9-10 studies (interp)
== END | disposition home or self-care (01) ==
LOC: PSN 08:27
PROVIDERS: PCP Nurse Practitioner Family; Referring Provider Physician Assistant Surgical; Visit Provider Physician Assistant Surgical
DX: R20.2 Paresthesia of skin (principal); G56.03 Carpal tunnel syndrome, bilateral upper limbs
CPT/HCPCS: 95886; 95911

== ENCOUNTER 2025-07-10 09:36 | Day surgery (SDC) | payer OTHER, SELFPAY ==
[2025-07-07 15:23] LABS: Hematocrit 41.1 % (37-47); Hemoglobin 14.4 g/dL (12.0-15.0); Immature Granulocytes Count 0.020 X10^3/uL (0.0-0.0); Mean Corp Hgb Conc 35.0 g/dL (32-36); Mean Corpuscular Volume 84.6 fL (81-99); Mean Platelet Vol. 9.0 fl (6.2-12.0); NRBC Flagged by Analyzer 0 % (0-5); Platelet Count 449 K/mm3 (150-450); RBC Distribution Width CV 12.5 % (11.6-14.6); RBC Distribution Width SD 38.3 fl (35.1-43.9); Red Blood Count 4.86 M/mm3 (4.2-5.4); White Blood Count 10.7 K/mm3 (4.4-11.0)
[2025-07-07 16:11] LABS: Anion Gap 15 (5-15); BUN 16 mg/dL (4-19); BUN/Creat Ratio 24.5 RATIO (10-20); Calcium,Total 10.3 mg/dL (7.6-11.0); Carbon Dioxide 23.2 mmol/L (21.0-32.0); Chloride 101 mmol/L (98-108); Glucose 171 mg/dL (70-99); Potassium 4.1 mmol/L (3.3-5.1)
[2025-07-10] VITALS (8 sets, daily range): BP systolic 132–161; BP diastolic 78–101; PULSE 80–90; RESP 16–18; TEMP 36.1–36.8; O2SAT 93–99; BMI 57.6
[2025-07-10] MEDS: Lactated Ringers 1,000 ML 15 ML IV (10:09)
--- NOTE | 2025-07-10 10:43 | PRE.ANES_ITS ---
ASA Classification* ASA Classification ASA Classification: 3 Assessment & Plan Anesthesia* Anesthesia Assessment Anesthesia Assessment: Discussed sedation and/or anesthesia options, risks, benefits, and alternatives with patient/parents/legal guardian/POA. Questions invited. The patient/parents/legal guardian/POA seems to understand and agrees to proceed with anesthesia plan. Reviewed the physical assessment, medical history, allergy history and patient home medications list prior to surgery/procedure/anesthetic and documented any changes. Performed airway and anesthesia risk assessments. Anesthesia Type Anesthesia Type: General History Source History Obtained from:: Patient and Chart Anesthesia Focused Assessment* Temperature: 98.0 F Pulse Rate: 80 Blood Pressure: 150/95 Respiratory Rate: 18 Pulse Ox: 97 Oxygen Delivery Method: Room Air Airway Assessment Mouth opens: >3 cm Mallampati Score: III Teeth Condition: Intact Neck Range of motion (ROM): Limited ROM (Slight Decrease) Labs Anesthesia Preop lab: CBC WBC, (4.4-11.0) 10.7 K/mm3 07/07/25, 14:55 RBC, (4.2-5.4) 4.86 M/mm3 07/07/25, 14:55 Hgb, (12.0-15.0) 14.4 g/dL 07/07/25, 14:55 Hct, (37-47) 41.1 % 07/07/25, 14:55 Plt Count, (150-450) 449 K/mm3 07/07/25, 14:55 CHEMISTRY Potassium, (3.3-5.1) 4.1 mmol/L 07/07/25, 14:55 Sodium, (133-145) 140 mmol/L 07/07/25, 14:55 BUN, (4-19) 16 mg/dL 07/07/25, 14:55 Creatinine, (0.70-1.20) 0.65 mg/dL L 07/07/25, 14:55 Glucose, (70-99) 171 mg/dL H 07/07/25, 14:55 POC Glucose, (74-106) 141 mg/dL H Today, 10:08 COAG Urine Test Negative Negative Today, 09:45 Pre-Assessment Diagnosis/Proposed Procedure Planned Operative Procedure(s): RIGHT OPEN CARPAL TUNNEL RELEASE ANC CUBITAL TUNNEL DECOMPRESSION Anesthesia History Anesthesia History - detention attendant: Anesthesia History - detention attendant Hx Hospitalization No 06/30/25 08:34 Any Problems With Anesthesia No 06/30/25 08:34 Cholinesterase deficiency No 06/30/25 08:34 You/Your Family Experience No 06/30/25 08:34 fever (hyperthermia) with Relationship Recent Exposure to Contagious No 07/10/25 09:58 Disease Does patient have nerve No 06/30/25 08:34 stimulator Patient instructed to have device shut off --Does patient have Pacemaker No 07/10/25 09:58 or ICD? When Was Last Pacemaker Check QUESTION #4 FULL TEXT: You/Your Family Experience fever (hyperthermia) with Anesthesia Last Oral Intake Last Oral intake: Last Oral Intake NPO since 09:00 07/10/25 09:58 Meds taken in AM with sips of No 07/10/25 09:58 water? Meds patient instructed to take am of surgery Any additional information?: Yes NPO since: 09:00 (Patient had water at 9 AM.) PONV PONV - detention attendant: PONV - detention attendant Female Yes 06/30/25 08:34 HX of Motion Sickness No 06/30/25 08:34 HX of N/V After Surgery No 06/30/25 08:34 Non-Smoker Yes 06/30/25 08:34 Duration of Surgery greater Yes 06/30/25 08:34 than 60 minutes Number of Risk Factors 3 06/30/25 08:34 PONV Score Moderate Risk 06/30/25 08:34 Height & Weight Height & Weight: Anesthesia: Height & Weight Height 5 ft 2 in 07/10/25 09:58 Weight: 143 kg 07/10/25 09:58 Body Mass Index (BMI) 57.6 07/10/25 09:58 Respiratory Assessment Respiratory Assessment - detention attendant: Respiratory Tract Infection Hx - detention attendant Hx Respiratory Tract Infection No 06/30/25 08:34 STOP Sleep Apnea STOP Sleep Apnea - detention attendant: STOP Sleep Apnea - detention attendant Hx Hypertension Yes: CONTROLLED WITH MED 06/30/25 08:34 Hx Sleep Apnea No 06/30/25 08:34 CPAP BIPAP Do you snore loudly (louder Yes 06/30/25 08:34 than talking or can be heard Do you often feel tired/ No 06/30/25 08:34 fatigued/ sleepy during daytime? Has anyone observed you stop No 06/30/25 08:34 breathing during sleep? STOP Results Positive 06/30/25 08:34 QUESTION #5 FULL TEXT : Do you snore loudly (louder than talking or can be heard through closed doors)? Tobacco Use History Tobacco Use History - detention attendant: Tobacco Use History - detention attendant Tobacco Use Smoking Status Never smoker 06/30/25 08:34 Hx Tobacco Use No 06/30/25 08:34 Years Smoking Packs Smoked per Day Smoking Cessation Date was within the last 15 years Hx Smoking Cessation Date Hx Smoking Cessation Counseling Hematologic Medial History Hematologic Hx - detention attendant: Hematologic Medical Hx - registered respiratory therapist Hx of Blood Transfusion No 06/30/25 08:34 Hx of Transfusion in last 3 No 06/30/25 08:34 Months Date of Last Transfusion (if within last 3 months) Ever experience any problems No 06/30/25 08:34 with transfusion(s)? Specify any problems Hx of Preganancy in last 3 No 06/30/25 08:34 Months Nurse Filling Out Transfusion DSCHRIBER 06/30/25 08:34 & Questions: Date: 06/30/25 06/30/25 08:34 Time: 08:36 06/30/25 08:34 Patient unable to answer at this time (ie. confused, unrespo /Reproduction History /Reproductive History - detention attendant: /Reproductive Hx- detention attendant Hx Now No 06/30/25 08:34 Gestational Age (in weeks): EDC: Hx Hx Para Hx Section SAB No 06/30/25 08:34 Active Medications Active Medications: Current Medications Generic Name Dose Route Start Last Admin Trade Name Freq PRN Reason Stop Dose Admin Cefazolin Sodium 3 gm/ Sodium 115 mls @ 200 mls/hr 07/10/25 11:15 Chloride IV 07/10/25 11:49 INTRAOP ONE Lactated Ringer's 1,000 mls @ 15 mls/hr 07/10/25 10:00 07/10/25 10:09 IV 15 mls/hr .Q48H MARIZA Administration PFSH Medical History Wears glasses Alcohol use Thyroid disease Dietary restriction Heartburn Non-smoker Chronic bronchitis Shortness of breath on exertion Leg cramps History of pain when walking Left lateral epicondylitis Hypertension Diabetes Bilateral carpal tunnel syndrome Home Medications ?Medication ?Instructions ?Recorded ?Last Taken ?Type lisinopril 40 mg tablet 40 mg PO DAILY 06/30/25 Unkn own History metformin 500 mg tablet 500 mg PO BID 06/30/25 Unkno wn History Allergy/AdvReac Type Severity Reaction Status Date / Time magnesium AdvReac Other Verified 07/10/25 09:52 sulfamethoxazole (From AdvReac Vomiting Verified 07/10/25 09:52 Bactrim) trimethoprim (From Bactrim) AdvReac Vomiting Verified 07/10/25 09:52 Family History Grandfather Cancer Father Heart disease Hypertension Mother Diabetes Surgical History Hx of wisdom tooth extraction Hx of section Social History household members: significant other and children housing: house number of children: 1 current occupational status: employed current occupation: 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
[2025-07-10] MEDS: Midazolam 2 MG/2 ML Syringe IV (11:02)
[2025-07-10] MEDS: Cefazolin 1 GM/5 ML Vial 3 GM IV (11:02)
[2025-07-10] MEDS: Lidocaine 1% (5 ml sdv) 5 ML Vial 10 ML IV (11:07)
[2025-07-10] MEDS: Bupiv/Epi 0.25% 30 ML Vial (11:52)
[2025-07-10] MEDS: fentaNYL 100 MCG/2 ML Ampul 200 MCG IV (12:17)
--- NOTE | 2025-07-10 12:27 | PCM.POST.ANE ---
Anesthesia: Postop Eval I Current Vital Signs Temperature: 98.2 F Pulse Rate: 90 Blood Pressure: 157/91 Respiratory Rate: 18 Pulse Ox: 99 Assessment Airway patent: Yes Spontaneous unlabored respirations: Yes nausea: No Vomiting: No Anesthesia Complication: No Fluid Hydration Crystalloid volume administer (ml): 900 Total IV fluid infused: 900 Progress Note Anesthesia document: Postop Eval 1 completed: Yes
--- NOTE | 2025-07-10 14:23 | PCM.OPRPT ---
Operative Report (Standard) Operative Information Date of Procedure: 07/10/25 Pre-Operative Diagnosis: 1. Right cubital tunnel syndrome 2. Right carpal tunnel syndrome Post-Operative Diagnosis: 1. Right cubital tunnel syndrome 2. Right carpal tunnel syndrome Surgery/Procedure Performed: 1. Right cubital tunnel decompression 2. Right open carpal tunnel release java developer with security clearance: Yes Vp Packaging: Jeannette Shah Tasks completed by pathology assistant: Opening & closing and Retracting Additional assistant women's rowing coach?: No Type of Anesthesia: General RN Documented Start/Stop Times: Operation Date: 07/10/25 11:15 Case Time Into Pre-Op 07/10/25 09:46 Out of Pre-Op 07/10/25 11:01 Anesthesia Start 07/10/25 11:02 Into Room 07/10/25 11:02 Procedure Start 07/10/25 11:32 Procedure End 07/10/25 12:12 Anesthesia End 07/10/25 12:18 Out of Room 07/10/25 12:18 Into Recovery 07/10/25 12:21 Into Phase II Recovery 07/10/25 12:49 Out of Recovery 07/10/25 12:49 Out of Phase II 07/10/25 13:42 Procedure Start Time: 11:32 Procedure Stop Time: 12:12 Select all DRAINS/GRAFTS/IMPLANTS that apply: None Estimated Blood Loss: 10 cc Specimen collected: No Description of surgery: Patient was seen in preoperative holding area. Patient was identified by name, medical record number, date of . The operative extremity was marked with a surgical marker. We confirmed informed consent with the patient and all questions were answered to the patient's satisfaction. At time of his procedure, patient was brought to the operative suite and positioned supine a standard operating table. All bony prominences were well-padded. General anesthesia was induced and endotracheal tube placed. The operative upper extremity was then prepped for surgery by first applying a well-padded pneumatic tourniquet to the right upper arm. The hand table attached to the right side of the table. We spun the bed 90 degrees. Utilizing a dorsal hand vein IV catheter, a Heeney block was administered by the anesthesia staff by first exsanguinating the upper extremity. After administering the Heeney block in removing the catheter, the right upper extremity was then prepped and draped in normal, sterile orthopedic fashion. 3 g Ancef was administered prior to incision by anesthesia staff. We performed a timeout at this point confirming side, site, and operation to be performed. No concerns voiced and elected to proceed. Exsanguination of the the operative upper extremity was performed with an Esmarch bandage. Tourniquet was inflated to 250 mmHg remained up for approximately 15 minutes. A standard longitudinal was made in line with the fourth ray proximal to Mosquera's cardinal line and distal to the wrist crease. Full-thickness skin flaps were developed sharply down to level palmar fascia. Heiss retractor was placed. Palmar fascia was split in line with the incision. Heiss retractor was taken deeper. Transverse carpal ligament was identified and split in line with the incision along its ulnar border. Proximal and distal releases were completed. Identification of perivascular fat was noted distally. No aberrancies in the median nerve were noted. The wound was copiously irrigated with normal saline solution. Skin was reapproximated with interrupted horizontal mattress 4-0 nylon suture. I then turned my attention to the elbow. An oblique incision between the medial epicondyle and olecranon was made approximately 6 cm in length. Blunt dissection was carried in the subcutaneous plane. No identifiable branches of the medial antebrachial cutaneous nerve were encountered. I then identified the fascia of the flexor carpi ulnaris between the 2 heads. The ulnar nerve was then found at this interval. There was significant compression at this level. The superficial and deep investing fascia of the FCU was then released to the first motor branch. I then tracked in a retrograde manner along the ulnar nerve identifying Quinn's ligament which was also a highly compressive at the nerve causing an hourglass deformity. This was released. The nerve appeared to be reasonably normal proximal to Quinn's ligament. There appeared to be some compression at the arcade of [place] which was also released. I was able to palpate within the posterior compartment without compression. No anomalous muscle bellies were identified. The elbow was then brought through range of motion after adequate decompression was achieved. There was no instability of the ulnar nerve with flexion of the elbow. Wound was irrigated copiously with normal saline solution. The tourniquet was then deflated. Hemostasis was excellent. A field block was administered with 30 cc total quarter percent bupivacaine. Dermis was reapproximated buried 3-0 Vicryl suture and skin was closed with running horizontal mattress 4-0 nylon suture. Sterile compression dressing was then applied. Patient tolerated procedure well without apparent complication. She was safely extubated and awakened in the operative suite. Patient was transferred to PACU in stable condition. Intraoperative medications: Post Operative Plan: Weightbearing: Nonweightbearing operative extremity Antibiotics: Ancef 2 g x 1 dose preoperatively DVT Prophylaxis: None indicated Bojorquez: None Dressing: Maintain x 2 days postoperatively then okay to shower. X-Rays: 2 weeks postop in the office Pain Medication: [place] Rx upon discharge Follow-up: 2 weeks post-operatively in the office for suture removal and wound check Surgical Findings: No aberrancies of either nerve noted. Significant compression at the carpal tunnel was noted. Severe compression of the ulnar nerve at the FCU fascia and Quinn's ligament. Stable ulnar nerve to elbow range of motion after final decompression. Complications Complications: No Admit VTE Documentation VTE Present on Admission: No VTE Mechan Device Prophylaxis: SCD's VTE Pharm Prophylaxis ordered?: No Reason prophylaxis not ordered: Treatment Not Indicated
--- NOTE | 2025-07-10 16:16 | POSTOPAN2_ITS ---
Anesthesia Postop Eval I Sum Postop Eval Completion status Anesthesia document: Postop Eval 1 completed: Yes Anesthesia Postop Eval I Summary Anesthesia Postop Eval I Summary: Anesthesia Postop Eval I: Assessment Summary Airway patent Yes 07/10/25 12:27 EMERGENCY DEPARTMENT CLINICIAN.[email or web address] Spontaneous unlabored Yes 07/10/25 12:27 EMERGENCY DEPARTMENT CLINICIAN.TNES respirations Mental status nausea No 07/10/25 12:27 EMERGENCY DEPARTMENT CLINICIAN.TNES Vomiting No 07/10/25 12:27 EMERGENCY DEPARTMENT CLINICIAN.TNES Anesthesia Postop Eval I: Fluid Summary Crystalloid volume administer 900 07/10/25 12:27 EMERGENCY DEPARTMENT CLINICIAN.TNES (ml) Colloids volume administered ( ml) Blood Product volume administered (ml) Total IV fluid infused 900 07/10/25 12:27 EMERGENCY DEPARTMENT CLINICIAN.TNES Anesthesia Postop Eval I: Summary Notes Anesthesia Complication No 07/10/25 12:27 EMERGENCY DEPARTMENT CLINICIAN.TNES Anesthesia Complication Comment: Post-operative progress note Anesthesia: Postop Eval II Evaluation Mental status: Awake Pain Level: 0 nausea: No Vomiting: No
--- NOTE | 2025-07-10 16:16 | PCM.POSTANE2 ---
Anesthesia Postop Eval I Sum Postop Eval Completion status Anesthesia document: Postop Eval 1 completed: Yes Anesthesia Postop Eval I Summary Anesthesia Postop Eval I Summary: Anesthesia Postop Eval I: Assessment Summary Airway patent Yes 07/10/25 12:27 MECHANICAL ENGINEERING INTERN.TNES Spontaneous unlabored Yes 07/10/25 12:27 MECHANICAL ENGINEERING INTERN.TNES respirations Mental status nausea No 07/10/25 12:27 MECHANICAL ENGINEERING INTERN.TNES Vomiting No 07/10/25 12:27 MECHANICAL ENGINEERING INTERN.TNES Anesthesia Postop Eval I: Fluid Summary Crystalloid volume administer 900 07/10/25 12:27 MECHANICAL ENGINEERING INTERN.TNES (ml) Colloids volume administered ( ml) Blood Product volume administered (ml) Total IV fluid infused 900 07/10/25 12:27 MECHANICAL ENGINEERING INTERN.TNES Anesthesia Postop Eval I: Summary Notes Anesthesia Complication No 07/10/25 12:27 MECHANICAL ENGINEERING INTERN.TNES Anesthesia Complication Comment: Post-operative progress note Anesthesia: Postop Eval II Evaluation Mental status: Awake Pain Level: 0 nausea: No Vomiting: No
== END 2025-07-10 13:45 | disposition home or self-care (01) ==
LOC: SDC 09:37 → AC 09:38
PROVIDERS: PCP Nurse Practitioner Family; Referring Provider Student in an Organized Health Care Education/Training Program; Visit Provider Student in an Organized Health Care Education/Training Program
PROC: (CPT 64721; principal; 2025-07-10 11:00)
DX: G56.03 Carpal tunnel syndrome, bilateral upper limbs (principal); Z68.43 Body mass index [BMI] 50.0-59.9, adult; E11.9 Type 2 diabetes mellitus without complications; G56.23 Lesion of ulnar nerve, bilateral upper limbs; Z79.84 Long term (current) use of oral hypoglycemic drugs; I10 Essential (primary) hypertension; E66.9 Obesity, unspecified; Z79.899 Other long term (current) drug therapy
CPT/HCPCS: 64721; 64718; 01810; 36415; 80048; 82962; 83036; 85025; J2405

== ENCOUNTER 2025-08-21 09:59 | Day surgery (SDC) | payer OTHER, SELFPAY ==
[2025-08-21] VITALS (10 sets, daily range): BP systolic 105–173; BP diastolic 59–95; PULSE 84–91; RESP 16–18; TEMP 36.2–36.7; O2SAT 93–99; BMI 58.0
[2025-08-21 10:34] LABS: Internal QC Validated? YES +Cl - CLEAR BKGD; Pregnancy, Urine Negative Negative; Record Kit Lot#,Urine Preg 980607
[2025-08-21] MEDS: Lactated Ringers 1,000 ML 15 ML IV (10:55)
--- NOTE | 2025-08-21 11:29 | PCM.PRE.AN2 ---
ASA Classification* ASA Classification ASA Classification: 3 Assessment & Plan Anesthesia* Anesthesia Assessment Anesthesia Assessment: Discussed sedation and/or anesthesia options, risks, benefits, and alternatives with patient/parents/legal guardian/POA. Questions invited. The patient/parents/legal guardian/POA seems to understand and agrees to proceed with anesthesia plan. Reviewed the physical assessment, medical history, allergy history and patient home medications list prior to surgery/procedure/anesthetic and documented any changes. Performed airway and anesthesia risk assessments. Anesthesia Type Anesthesia Type: MAC History Source History Obtained from:: Patient and Chart Anesthesia Focused Assessment* Temperature: 98.1 F Pulse Rate: 84 Blood Pressure: 173/95 Respiratory Rate: 18 Pulse Ox: 99 Oxygen Delivery Method: Room Air Airway Assessment Mouth opens: >3 cm Mallampati Score: II Teeth Condition: Intact Neck Range of motion (ROM): Limited ROM (Somewhat Decreased) Labs Anesthesia Preop lab: CBC WBC, (4.4-11.0) 10.7 K/mm3 07/07/25, 14:55 RBC, (4.2-5.4) 4.86 M/mm3 07/07/25, 14:55 Hgb, (12.0-15.0) 14.4 g/dL 07/07/25, 14:55 Hct, (37-47) 41.1 % 07/07/25, 14:55 Plt Count, (150-450) 449 K/mm3 07/07/25, 14:55 CHEMISTRY Potassium, (3.3-5.1) 4.1 mmol/L 07/07/25, 14:55 Sodium, (133-145) 140 mmol/L 07/07/25, 14:55 BUN, (4-19) 16 mg/dL 07/07/25, 14:55 Creatinine, (0.70-1.20) 0.65 mg/dL L 07/07/25, 14:55 Glucose, (70-99) 171 mg/dL H 07/07/25, 14:55 POC Glucose, (74-106) 139 mg/dL H Today, 10:43 COAG Urine Test Negative Negative Today, 10:10 Pre-Assessment Diagnosis/Proposed Procedure Planned Operative Procedure(s): (L) LEFT OPEN CARPAL TUNNEL RELEASE AND CUBITAL TUNNEL DECOMPRESSION Anesthesia History Anesthesia History - shop welder: Anesthesia History - shop welder Hx Hospitalization No 08/18/25 11:43 Any Problems With Anesthesia No 08/18/25 11:43 Cholinesterase deficiency No 08/18/25 11:43 You/Your Family Experience No 08/18/25 11:43 fever (hyperthermia) with Relationship Recent Exposure to Contagious No 08/21/25 10:44 Disease Does patient have nerve No 08/18/25 11:43 stimulator Patient instructed to have device shut off --Does patient have Pacemaker No 08/21/25 10:44 or ICD? When Was Last Pacemaker Check QUESTION #4 FULL TEXT: You/Your Family Experience fever (hyperthermia) with Anesthesia Last Oral Intake Last Oral intake: Last Oral Intake NPO since 22:00 08/21/25 10:44 Meds taken in AM with sips of No 08/21/25 10:44 water? Meds patient instructed to take am of surgery PONV PONV - shop welder: PONV - shop welder Female Yes 08/18/25 11:43 HX of Motion Sickness Yes 08/18/25 11:43 HX of N/V After Surgery No 08/18/25 11:43 Non-Smoker Yes 08/18/25 11:43 Duration of Surgery greater Yes 08/18/25 11:43 than 60 minutes Number of Risk Factors 4 08/18/25 11:43 PONV Score Severe Risk 08/18/25 11:43 Height & Weight Height & Weight: Anesthesia: Height & Weight Height 5 ft 2 in 08/21/25 10:44 Weight: 144 kg 08/21/25 10:44 Body Mass Index (BMI) 58.0 08/21/25 10:44 Respiratory Assessment Respiratory Assessment - shop welder: Respiratory Tract Infection Hx - shop welder Hx Respiratory Tract Infection No 08/18/25 11:43 STOP Sleep Apnea STOP Sleep Apnea - shop welder: STOP Sleep Apnea - shop welder Hx Hypertension Yes: PER PT, CONTROLLED WITH 08/18/25 11:43 MED Hx Sleep Apnea No 08/18/25 11:43 CPAP BIPAP Do you snore loudly (louder No 08/18/25 11:43 than talking or can be heard Do you often feel tired/ No 08/18/25 11:43 fatigued/ sleepy during daytime? Has anyone observed you stop No 08/18/25 11:43 breathing during sleep? STOP Results Negative 08/18/25 11:43 QUESTION #5 FULL TEXT : Do you snore loudly (louder than talking or can be heard through closed doors)? Tobacco Use History Tobacco Use History - shop welder: Tobacco Use History - shop welder Tobacco Use Smoking Status Never smoker 08/18/25 11:43 Hx Tobacco Use No 08/18/25 11:43 Years Smoking Packs Smoked per Day Smoking Cessation Date was within the last 15 years Hx Smoking Cessation Date Hx Smoking Cessation Counseling Hematologic Medial History Hematologic Hx - shop welder: Hematologic Medical Hx - audiovisual aids technician Hx of Blood Transfusion No 08/18/25 11:43 Hx of Transfusion in last 3 No 08/18/25 11:43 Months Date of Last Transfusion (if within last 3 months) Ever experience any problems No 08/18/25 11:43 with transfusion(s)? Specify any problems Hx of Preganancy in last 3 No 08/18/25 11:43 Months Nurse Filling Out Transfusion MGRIHARRIET 08/18/25 11:43 & Questions: Date: 08/18/25 08/18/25 11:43 Time: 11:46 08/18/25 11:43 Patient unable to answer at this time (ie. confused, unrespo /Reproduction History /Reproductive History - shop welder: /Reproductive Hx- shop welder Hx Now No 08/18/25 11:43 Gestational Age (in weeks): EDC: Hx Hx Para Hx Section SAB No 08/18/25 11:43 Does the father of the baby or his family experience fever w Father of the baby Malignant Hypertension history comment Active Medications Active Medications: Current Medications Generic Name Dose Route Start Last Admin Trade Name Freq PRN Reason Stop Dose Admin Lactated Ringer's 1,000 mls @ 15 mls/hr 08/21/25 10:15 08/21/25 10:55 IV 15 mls/hr .Q48H MARIZA Administration PFSH Medical History Wears glasses Alcohol use Thyroid disease Dietary restriction Heartburn Non-smoker Chronic bronchitis Shortness of breath on exertion Leg cramps History of pain when walking Left lateral epicondylitis Hypertension Diabetes Bilateral carpal tunnel syndrome Home Medications Medication Instructions Recorded Last Taken Type lisinopril 40 mg tablet 40 mg PO QHS 06/30/25 08/20/25 History metformin 500 mg tablet 500 mg PO BID 06/30/25 08/20/25 History hydrocodone-acetaminophen 5-325mg 1 - 2 tab PO Q6H PRN PRN Pain 5 07/10/25 Unknown Rx 5mg-325mg days #20 tabs Allergy/AdvReac Type Severity Reaction Status Date / Time magnesium AdvReac Other Verified 08/21/25 10:39 sulfamethoxazole (From AdvReac Vomiting Verified 08/21/25 10:39 Bactrim) trimethoprim (From Bactrim) AdvReac Vomiting Verified 08/21/25 10:39 Family History Grandfather Cancer Father Heart disease Hypertension Mother Diabetes Surgical History History of carpal tunnel surgery of right wrist Hx of wisdom tooth extraction Hx of section Social History household members: significant other and children housing: house number of children: 1 current occupational status: employed current occupation: 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
[2025-08-21] MEDS: Cefazolin 1 GM/5 ML Vial 3 GM IV (11:46)
[2025-08-21] MEDS: Midazolam 2 MG/2 ML Syringe IV (11:46)
[2025-08-21] MEDS: Lidocaine 1% (5 ml sdv) 5 ML Vial 10 ML IV (11:53)
[2025-08-21] MEDS: fentaNYL 100 MCG/2 ML Ampul 200 MCG IV (12:17)
[2025-08-21] MEDS: Lidocaine 1% /Epi 1:100 (50ml) 50 ML VIAL (12:30)
--- NOTE | 2025-08-21 12:42 | OP.PCM_ITS ---
Operative Report (Standard) Operative Information Date of Procedure: 08/21/25 Pre-Operative Diagnosis: 1. Right cubital tunnel syndrome 2. Right carpal tunnel syndrome Post-Operative Diagnosis: 1. Right cubital tunnel syndrome 2. Right carpal tunnel syndrome Surgery/Procedure Performed: 1. Right cubital tunnel decompression with anterior subcutaneous ulnar nerve transposition 2. Right open carpal tunnel release firewood cutter: Yes Implementation Coordinator: Jeannette Shah Tasks completed by first grade teacher: Opening & closing, Hemostasis: Electrocautery and Retracting Type of Anesthesia: General RN Documented Start/Stop Times: Operation Date: 08/21/25 11:45 Case Time Into Pre-Op 08/21/25 10:11 Out of Pre-Op 08/21/25 11:44 Anesthesia Start 08/21/25 11:46 Into Room 08/21/25 11:46 Procedure Start 08/21/25 12:06 Procedure Start Time: 12:06 Procedure Stop Time: 12:43 Select all DRAINS/GRAFTS/IMPLANTS that apply: None Estimated Blood Loss: 10 cc Specimen collected: No Description of surgery: Patient was seen in preoperative holding area. Patient was identified by name, medical record number, date of . The operative extremity was marked with a surgical marker. We confirmed informed consent with the patient and all questions were answered to the patient's satisfaction. At time of her procedure, patient was brought to the operative suite and positioned supine a standard operating table. All bony prominences were well- padded. General anesthesia was induced and endotracheal tube placed. The operative upper extremity was then prepped for surgery by first applying a well- padded pneumatic tourniquet to the left upper arm. The hand table attached to the left side of the table. We spun the bed 90 degrees. The left upper extremity was then prepped and draped in normal, sterile orthopedic fashion. 3 g Ancef was administered prior to incision by anesthesia staff. We performed a timeout at this point confirming side, site, and operation to be performed. No concerns voiced and elected to proceed. Exsanguination of the the operative upper extremity was performed with an Esmarch bandage. Tourniquet was inflated to 250 mmHg remained up for approximately 30 minutes. A standard longitudinal was made in line with the fourth ray proximal to Mosquera's cardinal line and distal to the wrist crease. Full-thickness skin flaps were developed sharply down to level palmar fascia. Heiss retractor was placed. Palmar fascia was split in line with the incision. Heiss retractor was taken deeper. Transverse carpal ligament was identified and split in line with the incision along its ulnar border. Proximal and distal releases were completed. Identification of perivascular fat was noted distally. No aberrancies in the median nerve were noted. The wound was copiously irrigated with normal saline solution. Skin was reapproximated with interrupted horizontal mattress 4-0 nylon suture. I then turned my attention to the elbow. An oblique incision between the medial epicondyle and olecranon was made approximately 6 cm in length. Blunt dissection was carried in the subcutaneous plane. No identifiable branches of the medial antebrachial cutaneous nerve were encountered. I then identified the fascia of the flexor carpi ulnaris between the 2 heads. The ulnar nerve was then found at this interval. There was significant compression at this level. The superficial and deep investing fascia of the FCU was then released to the first motor branch. I then tracked in a retrograde manner along the ulnar nerve identifying Quinn's ligament which was also a highly compressive at the nerve causing an hourglass deformity. This was released. The nerve appeared to be reasonably normal proximal to Quinn's ligament. There appeared to be some compression at the arcade of [place] which was also released. I was able to palpate within the posterior compartment without compression. No anomalous mus lalita bellies were identified. The elbow was then brought through range of motion after adequate decompression was achieved. Nerve was highly unstable at this time and elected to proceed with a transposition. The nerve was mobilized. A fascial flap was raised from the medial epicondyle. The nerve was transposed anteriorly and the fascial flap was secured to the subcutaneous fascia. There is no kinking of the nerve through range of motion and no compression. The tourniquet was then deflated. Hemostasis was excellent. A field block was administered with 20 cc total 1% lidocaine with epinephrine. Dermis was reapproximated buried 3-0 Vicryl suture and skin was closed with running subcuticular 4-0 Monocryl and Dermabond. Sterile compression dressing was then applied. Patient tolerated procedure well without apparent complication. She was safely extubated and awakened in the operative suite. Patient was transferred to PACU in stable condition. Post Operative Plan: Weightbearing: Nonweightbearing operative extremity. Gentle range of motion. Antibiotics: Ancef 3 g x 1 dose preoperatively DVT Prophylaxis: None indicated Bojorquez: None Dressing: Maintain x 2 days postoperatively then okay to shower. X-Rays: 2 weeks postop in the office Pain Medication: [place] previously prescribed Follow-up: 2 weeks post-operatively in the office for suture removal and wound check Surgical Findings: Significant compression and FCU noted at the cubital tunnel. Unstable ulnar nerve following decompression. No aberrancies of the median nerve noted. Complete release of transverse carpal ligament. Complete decompression of the ulnar nerve through the cubital tunnel. Complications Complications: No Admit VTE Documentation VTE Present on Admission: No VTE Mechan Device Prophylaxis: SCD's VTE Pharm Prophylaxis ordered?: No Reason prophylaxis not ordered: Treatment Not Indicated
--- NOTE | 2025-08-21 12:54 | PCM.POST.ANE ---
Anesthesia: Postop Eval I Current Vital Signs Temperature: 97.2 F Pulse Rate: 90 Blood Pressure: 124/61 Respiratory Rate: 16 Pulse Ox: 95 Assessment Airway patent: Yes Spontaneous unlabored respirations: Yes nausea: No Vomiting: No Anesthesia Complication: No Fluid Hydration Crystalloid volume administer (ml): 700 Total IV fluid infused: 700 Progress Note Anesthesia document: Postop Eval 1 completed: Yes
--- NOTE | 2025-08-21 14:34 | POSTOPAN2_ITS ---
Anesthesia Postop Eval I Sum Postop Eval Completion status Anesthesia document: Postop Eval 1 completed: Yes Anesthesia Postop Eval I Summary Anesthesia Postop Eval I Summary: Anesthesia Postop Eval I: Assessment Summary Airway patent Yes 08/21/25 12:54 TREE FRUIT AND NUT CROPS [email or web address].[email or web address] Spontaneous unlabored Yes 08/21/25 12:54 TREE FRUIT AND NUT CROPS [email or web address].TNES respirations Mental status nausea No 08/21/25 12:54 TREE FRUIT AND NUT CROPS [email or web address].TNES Vomiting No 08/21/25 12:54 TREE FRUIT AND NUT CROPS [email or web address].TNES Anesthesia Postop Eval I: Fluid Summary Crystalloid volume administer 700 08/21/25 12:54 TREE FRUIT AND NUT CROPS [email or web address].TNES (ml) Colloids volume administered ( ml) Blood Product volume administered (ml) Total IV fluid infused 700 08/21/25 12:54 TREE FRUIT AND NUT CROPS [email or web address].TNES Anesthesia Postop Eval I: Summary Notes Anesthesia Complication No 08/21/25 12:54 TREE FRUIT AND NUT CROPS [email or web address].TNES Anesthesia Complication Comment: Post-operative progress note Anesthesia: Postop Eval II Evaluation Mental status: Awake and Calm Pain Level: 0 nausea: No Vomiting: No Complications Anesthesia Complication: No
--- NOTE | 2025-08-21 14:34 | PCM.POSTANE2 ---
Anesthesia Postop Eval I Sum Postop Eval Completion status Anesthesia document: Postop Eval 1 completed: Yes Anesthesia Postop Eval I Summary Anesthesia Postop Eval I Summary: Anesthesia Postop Eval I: Assessment Summary Airway patent Yes 08/21/25 12:54 DRIVER [email or web address] Spontaneous unlabored Yes 08/21/25 12:54 DRIVER SUPERVISOR.[email or web address] respirations Mental status nausea No 08/21/25 12:54 DRIVER [email or web address].TNES Vomiting No 08/21/25 12:54 DRIVER [email or web address].TNES Anesthesia Postop Eval I: Fluid Summary Crystalloid volume administer 700 08/21/25 12:54 DRIVER [email or web address].TNES (ml) Colloids volume administered ( ml) Blood Product volume administered (ml) Total IV fluid infused 700 08/21/25 12:54 DRIVER [email or web address].TNES Anesthesia Postop Eval I: Summary Notes Anesthesia Complication No 08/21/25 12:54 DRIVER [email or web address].TNES Anesthesia Complication Comment: Post-operative progress note Anesthesia: Postop Eval II Evaluation Mental status: Awake and Calm Pain Level: 0 nausea: No Vomiting: No Complications Anesthesia Complication: No
--- NOTE | 2025-08-25 09:40 | PCM.HP.STD ---
HPI - General General Date of Admission: 08/21/25 Date of Service: 08/21/25 Chief Complaint: Left hand numbness and tingling HPI Narrative CLAUDIO RAO, is a 54 F who presents for planned left cubital tunnel decompression and left open carpal tunnel release. She previously was diagnosed with both cubital and carpal tunnel syndrome in the outpatient setting. She also had the same in the right. She had a right cubital tunnel decompression and carpal tunnel release performed on 07/10/2025 and has had excellent results. She wishes to proceed with surgery on the left. Patient has failed nonsurgical treatment in the form of nighttime bracing, NSAIDs. Electrodiagnostic testing was performed and May demonstrated bilateral carpal tunnel and cubital tunnel syndromes. Denies any prior anesthetic complication. Denies history of DVT or PE. Previous H&P that was placed in the paper chart apparently has not been found in the electronic medical record thus a H&P is being dictated. [facility] Medical History Wears glasses Alcohol use Thyroid disease Dietary restriction Heartburn Non-smoker Chronic bronchitis Shortness of breath on exertion Leg cramps History of pain when walking Left lateral epicondylitis Hypertension Diabetes Bilateral carpal tunnel syndrome Home Medications Medication Instructions Recorded Last Taken Type lisinopril 40 mg tablet 40 mg PO QHS 06/30/25 08/20/25 History metformin 500 mg tablet 500 mg PO BID 06/30/25 08/20/25 History hydrocodone-acetaminophen 5-325mg 1 - 2 tab PO Q6H PRN PRN Pain 5 07/10/25 Unknown Rx 5mg-325mg days #20 tabs Allergy/AdvReac Type Severity Reaction Status Date / Time magnesium AdvReac Other Verified 08/21/25 10:39 sulfamethoxazole (From AdvReac Vomiting Verified 08/21/25 10:39 Bactrim) trimethoprim (From Bactrim) AdvReac Vomiting Verified 08/21/25 10:39 Family History Grandfather Cancer Father Heart disease Hypertension Mother Diabetes Surgical History History of carpal tunnel surgery of right wrist Hx of wisdom tooth extraction Hx of section Social History household members: significant other and children housing: house number of children: 1 current occupational status: employed current occupation: [employer] Smoking Status: Never smoker alcohol intake: current alcohol intake frequency: holidays/special occasions only substance use type: does not use seatbelt use: always do you feel safe at home: Yes additional social history: [employer] Vital Signs Vital Signs Vital Signs: Weight Weight: 317 lb 7.45 oz Body Mass Index (BMI) 58.0 Physical Exam Narrative Vitals from 08/21/2025 1044 Temperature 98.1, pulse 84, blood pressure 173/95, respiration rate 18, pulse ox 99% on room air General -A&Ox3, NAD, appears stated age. Vital signs stable, afebrile. Respiratory -normal work of breathing, no intercostal retractions. CV -pulses regular, brisk capillary refill ×4 limbs. Abdomen-soft, nontender, nondistended. No guarding, rigidity, rebound tenderness. Musculoskeletal/neurologic - Positive Tinel's left carpal and cubital tunnels. No rash or wounds. Patient seen and examined. The patient's patient admitted to moderate prescription for treatment. Prescription management medical completion of treatment Assessment & Plan Assessment/Plan (1) Carpal tunnel syndrome, left: PLAN: Plan to proceed with left open carpal tunnel release and left cubital tunnel decompression. Patient has failed nonsurgical treatment. Informed consent confirmed with the patient. All questions were answered to her satisfaction. Further recommendations pending surgery. (2) Cubital tunnel syndrome on left: PLAN: See above plan for details.
== END 2025-08-21 14:14 | disposition home or self-care (01) ==
LOC: SDC 10:01 → AC 10:04
PROVIDERS: Student in an Organized Health Care Education/Training Program; PCP Nurse Practitioner Family; Referring Provider Student in an Organized Health Care Education/Training Program; Visit Provider Student in an Organized Health Care Education/Training Program
DX: G56.03 Carpal tunnel syndrome, bilateral upper limbs (principal); E11.9 Type 2 diabetes mellitus without complications; Z79.84 Long term (current) use of oral hypoglycemic drugs; I10 Essential (primary) hypertension; G56.23 Lesion of ulnar nerve, bilateral upper limbs; Z79.899 Other long term (current) drug therapy
CPT/HCPCS: 64718; 64721; 01810; 81025; 82962; J2405